=== PATIENT | male | born 1995 | race Caucasian/White ===

== ENCOUNTER 2020-03-26 09:42 | Day surgery (SDC) | payer OTHER ==
[2020-03-19 16:14] LABS: Basophils % 0.4 % (0-1.3); Hematocrit 40.8 % (39.6-49.0); Lymphocytes % 32.5 % (15.3-44.8)
[2020-03-19 16:15] LABS: Protime INR 1.08
[2020-03-19 16:32] LABS: BUN Blood Urea Nitrogen 17 mg/dL (7-18); Bicarbonate 30 mmol/L (21-32); Glucose Level 91 mg/dL (74-106); Potassium 4.1 mmol/L (3.5-5.1); Sodium Level 141 mmol/L (136-145)
[2020-03-26] MEDS ORDERED: Ringers Lactate 1,000 ML IV ONE (10:02)
[2020-03-26] MEDS ORDERED: BACITRACIN OINTMENT 15 GM TUBE TOP ONE (11:12)
[2020-03-26] MEDS: BUPIVACAINE 0.25% PF 30 ML VIAL ONE ×2 (11:49→12:13)
[2020-03-26] MEDS: CEFAZOLIN/SWI 1gm 1 GM/10 ML SYR ONE ×2 (11:49→12:00)
[2020-03-26] MEDS ORDERED: FENTANYL CITR 100 MCG/2 ML ONE (11:58)
[2020-03-26] MEDS ORDERED: propofoL 200 MG/20 ML VIAL IV ONE ×2 (11:58→13:15)
[2020-03-26] MEDS ORDERED: MIDAZOLAM HCL 2 MG/2 ML INJ ONE (11:58)
[2020-03-26] MEDS ORDERED: LIDOCAINE 1% MPF 5 ML VIAL ONE (11:58)
[2020-03-26] MEDS ORDERED: KETOROLAC 30 MG/ML INJ ONE (12:18)
[2020-03-26] MEDS ORDERED: ONDANSETRON 4 MG/2 ML VIAL ONE ×2 (12:28→14:24)
[2020-03-26] MEDS ORDERED: NORCO 5/325mg (4 TAB for ER Dispense) PO ONE (14:40)
[2020-03-26] MEDS ORDERED: HYDROCODONE/APAP 5/325 MG TAB ONE (14:51)
[2020-03-26 16:48] VITALS: TEMP 96.9; O2SAT 100
[2020-03-26 16:49] VITALS: BP 128/60
--- NOTE | 2020-03-26 18:19 | OP ---
Surgeon: JACQUELIN ROMEO Preoperative Diagnoses: 1.Left hydrocele. 2.History of VATER syndrome. Postoperative Diagnoses: 1.Moderate-sized left hydrocele. 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 3.Average tortuosity of the vas deferens entering the inferior epididymis. Procedure: 1.Left Jaboulay hydrocelectomy. 2.Left orchiopexy. 3.Left extratesticular lesion biopsy. Indication For Procedure: Mr. Montgomery presented to the [facility]rology [facility] with concerns of infertility an d a left-sided hydrocele that was bothersome to him. In the process of evaluating his infertility an d the hydrocele, ultrasound documented normal testicular anatomy without any signs of malignancy. As a result, he wished to undergo formal hydrocelectomy to restore somewhat of normal anatomy. Procedure In Detail: The patient was consented in the preoperative holding area before being transfe rred to the operative suite where general anesthesia was induced. He was given Ancef IV antimicrobia l prophylaxis, and pneumo boots were provided for DVT prophylaxis. He was placed supine on the opera tive table, padded and secured appropriately. His genitalia were prepped using Betadine and draped i n standard fashion. Identifying a Onofre's line incision in the anterior left hemiscrotum, 0.25% Mar shahnaz was instilled subcutaneously along that point of identification for an approximately 2-3 cm gorge gth. Using a 15 blade, the skin was incised and deepened through the subcutaneous tissues. Using el ectrocautery, this was deepened through the dartos layers down to the parietal layer of the tunica va ginalis. Careful dissection was then performed the tunica vaginalis anteriorly and medial ly as well as laterally, superiorly and inferiorly from the remainder of the scrotum. Because the hy drocele was significantly sized, I did incise the tunica vaginalis in the anterior-posterior directio n and partially decompressed. I was then able to deliver the hydrocele sac via the incision prior to completely decompressing the fluid from within. I then incised the tunica vaginalis in an anterior- posterior direction and assess the internal testicular anatomy and cord structures. While there was no significant varicocele noted, there was significant aberrancy of his anatomy. The tunica vaginali s viscerally attached low on the cord consistent with the potential for future intravaginal torsion e vent. Additionally, the vas deferens proceeded in a tortuous fashion into a portion of the thickened tunica vaginalis. As a result, efforts to excise much of the hydrocele sac were aborted due to the aberrant localization of the vas deferens and the efforts taken to avoid it. As a result, the tunica vaginalis that was remnant after excising a portion was then plicated behind the testis in the usual fashion. Additional tissue was separately excised in order to decrease the bulk of the thickened tu shawna vaginalis. Once this was done, the testis was then surveyed for appropriate orthotopic position ing relative to the cord structures and the vasculature. Because of the low insertion/attachment of the visceral layer of the tunica vaginalis and the risk of torsion as described earlier, I performed an orchiopexy using 4-0 Prolene to pex the testicle in the lateral as well as inferior component of t he scrotum. Once this was done, I then copiously irrigated all of the intratesticular structures and then reapproximated the cremaster and dartos layers of the scrotum taking care to excise any excess tissue from the multiple layers of scrotal tissue that he possessed. Once this was done, I then clos ed the skin using 3-0 chromic in a running fashion dipped in bacitracin. In the end, the cosmetic re sult was excellent. Please note that when surveying the testis above initially after opening the par ietal layer of tunica vaginalis, there were several areas, about 4 or 5, of granulomatous appearing l esions along the inferior portion of the tunica albuginea of the left testis. These lesions were bio psied and then fulgurated to destroy them. The specimen was sent for pathologic analysis. Once the procedure was complete, the patient was cleansed of the Betadine, and fluff gauze along with a scrota l support was applied for elevation and pressure. The patient was then awakened from general anesthe jose, transferred to a stretcher, and then transferred to the recovery room in good condition. Complications: None. Discharge Disposition: He will follow up in the Urology Clinic in about 2 weeks to discuss the resul ts of the pathology of the biopsy of the lesions extratesticularly as well as that of the hydrocele, which is expected to be benign. We will also reassess his cosmetic and functional outcome from the p rocedure. KIERAN/PABLO Voice ID: [id number] Report ID: [id number]
== END 2020-03-26 15:20 | disposition home or self-care (01) ==
LOC: OR 09:42
PROVIDERS: ATTEND Urology
PROC: 0VBB0ZX Excision of Left Testis, Open Approach, Diagnostic (ICD-10-PCS; 2020-03-26)
PROC: 0VB70ZZ Excision of Left Tunica Vaginalis, Open Approach (ICD-10-PCS; principal; 2020-03-26 11:15)
PROC: 0VQB0ZZ Repair Left Testis, Open Approach (ICD-10-PCS; 2020-03-26 11:15)
DX: N43.3 Hydrocele, unspecified (principal); N42.83 Cyst of prostate; Q87.2 Congenital malformation syndromes predominantly involving limbs
CPT/HCPCS: 55040; 54640; 54505; 85025; 80048; 36415; 85610; 88302; 88305; J2704 ×2; J2250; J3010; J0690; J7120; J2405 ×2

== ENCOUNTER 2020-10-31 11:22 | Emergency (ER) | payer OTHER ==
[2020-10-31 12:21] LABS: Absolute Lymphocytes (CBC) 0.8 K/uL (0.7-4.9); Basophils % 0.4 % (0-1.3); Hematocrit 41.5 % (39.6-49.0); Lymphocytes % 15.5 % (15.3-44.8); MPV 8.7 fL (7.6-11.3); RBC Red Blood Cell Count 4.93 M/uL (4.33-5.43)
[2020-10-31] MEDS ORDERED: ONDANSETRON 4 MG/2 ML VIAL ONE (12:26)
[2020-10-31] MEDS ORDERED: Ringers Lactate 2,000 ML IV ONE (12:26)
[2020-10-31] MEDS ORDERED: PROMETHAZINE INJ 25 MG/ML AMP ONE (12:31)
[2020-10-31 12:53] LABS: ALT/SGPT 44 U/L (12-78); AST/SGOT 36 U/L (15-37); Albumin 3.8 g/dL (3.4-5.0); Alkaline Phosphatase 78 U/L (45-117); BUN Blood Urea Nitrogen 17 mg/dL (7-18); Bicarbonate 28 mmol/L (21-32); Bilirubin Direct < 0.1 mg/dL (0-0.2); Bilirubin Total 0.3 mg/dL (0.2-1.0); Glucose Level 118 mg/dL (74-106); Lipase 87 U/L (73-393); Sodium Level 137 mmol/L (136-145)
--- NOTE | 2020-10-31 13:25 | RAD REPORT ---
EXAM DESCRIPTION: CTAbdomen Pelvis W Contrast - 10/31/2020 1:14 pm CLINICAL HISTORY: Abdominal pain. ABD PAIN COMPARISON: Abdomen Pelvis W Contrast dated 11/02/2019 TECHNIQUE: Biphasic CT imaging of the abdomen and pelvis was performed with 100 ml non-ionic IV cont rast. All CT scans are performed using dose optimization technique as appropriate and may include automated exposure control or mA/KV adjustment according to patient size. FINDINGS: Mild opacities are present in the lung bases which may represent infection/pneumonia. The liver demonstrates diffuse fatty infiltration. The spleen, pancreas, adrenal glands and kidneys a re within normal limits. No bowel obstruction, free air, free fluid or abscess. Probable appendectomy. No evidence of signif icant lymphadenopathy. No suspicious bony findings. IMPRESSION: No acute intra-abdominal or pelvic finding. Opacities in both lung bases are seen suspicious for pulmonary infection. Mild fatty liver.
--- NOTE | 2020-10-31 14:08 | EDPHYS ---
Physician Documentation [facility] Name: Joni Montgomery Age: 24 yrs Sex: Male : 1995 Arrival Date: 10/31/2020 Time: 11:24 Bed 17 Private MD: ED Physician Carroll Mcadams HPI: 10/31 12:49 This 24 yrs old Male presents to ER via Ambulatory with complaints of jr8 Nausea/Vomiting. 12:49 The patient presents to the emergency department with nausea, vomiting, diarrhea. jr8 Onset: The symptoms/episode began/occurred suddenly, 4 day(s) ago. Possible causes: unknown. The symptoms are aggravated by food . Associated signs and symptoms: Pertinent positives: dizziness. Severity of symptoms: At their worst the symptoms were moderate in the emergency department the symptoms are unchanged. The patient has not experienced similar symptoms in the past. The patient has not recently seen a physician. Patient stated that on October 27 while doing fireworks started to feel hot and then became dizzy and started to vomit. Stated that he has been vomiting ever sense and not been able to keep food or fluid down. Stated that the dizziness has improved but has some pain to abdomen . Historical: - Allergies: 11:43 Latex, Natural Rubber; sv - PMHx: 11:43 None; sv - PSHx: 11:43 Appendectomy; sv - Immunization history:: Client reports having NOT received the Covid vaccine. - Social history:: Smoking status: Patient denies any tobacco usage or history of. ROS: 12:49 Eyes: Negative for injury, pain, redness, and discharge, ENT: Negative for injury, jr8 pain, and discharge, Neck: Negative for injury, pain, and swelling, Cardiovascular: Negative for chest pain, palpitations, and edema, Respiratory: Negative for shortness of breath, cough, wheezing, and pleuritic chest pain, Back: Negative for injury and pain, MS/Extremity: Negative for injury and deformity, Skin: Negative for injury, rash, and discoloration. 12:49 Constitutional: Positive for poor PO intake. 12:49 Abdomen/GI: Positive for abdominal pain, nausea, vomiting, and diarrhea, abdominal cramps. 12:49 Neuro: Positive for dizziness. Exam: 12:49 ENT: Nares patent. No nasal discharge, no septal abnormalities noted. Tympanic jr8 membranes are normal and external auditory canals are clear. Oropharynx with no redness, swelling, or masses, exudates, or evidence of obstruction, uvula midline. Mucous membranes moist. Neck: Trachea midline, no thyromegaly or masses palpated, and no cervical lymphadenopathy. Supple, full range of motion without nuchal rigidity, or vertebral point tenderness. No Meningismus. 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 Lids and lashes normal. Conjunctiva and sclera are non-icteric and not injected. Cornea within normal limits. Periorbital areas with no swelling, redness, or edema. Respiratory: Lungs have equal breath sounds bilaterally, clear to auscultation and percussion. No rales, rhonchi or wheezes noted. No increased work of breathing, no retractions or nasal flaring. Back: No spinal tenderness. No costovertebral tenderness. Full range of motion. Skin: Warm, dry with normal turgor. Normal color with no rashes, no lesions, and no evidence of cellulitis. MS/ Extremity: Pulses equal, no cyanosis. Neurovascular intact. Full, normal range of motion. Neuro: Awake and alert, GCS 15, oriented to person, place, time, and situation. Cranial nerves II-XII grossly intact. Motor strength 5/5 in all extremities. Sensory grossly intact. 12:49 Cardiovascular: Rate: tachycardic, Rhythm: regular, Pulses: Pulses are 2+ in right radial artery and left radial artery. Heart sounds: normal, normal S1and S2, no S3 or S4, no murmur, no rub, no gallop, Edema: is not appreciated, JVD: is not appreciated. 12:49 Abdomen/GI: Inspection: abdomen appears normal, Bowel sounds: active, all quadrants, Palpation: soft, in all quadrants, moderate abdominal tenderness, in the right mid abdomen, mass, is not appreciated, rebound tenderness, is not appreciated, voluntary guarding, is not appreciated, involuntary guarding, is not appreciated, no appreciated organomegaly, Indicators: McBurney's point is not tender, Griffin's sign is negative, Rovsing's sign is negative, Liver: tenderness, is not appreciated. Vital Signs: 11:42 BP 106 / 70; Pulse 124; Resp 18; Temp 98.3(T); Pulse Ox 98% ; Weight 104.33 kg; Height sv 5 ft. 7 in. (170.18 cm); Pain 0/10; 12:25 BP 107 / 60; Pulse 109; Resp 20 S; Pulse Ox 98% on R/A; jd3 13:25 BP 113 / 75; Pulse 103; Resp 21 S; Pulse Ox 97% on R/A; jd3 14:33 BP 106 / 70; Pulse 100; Resp 16 S; Pulse Ox 97% on R/A; jd3 11:42 Body Mass Index 36.02 (104.33 kg, 170.18 cm) sv MDM: 11:39 Patient medically screened. jr8 13:37 Data reviewed: vital signs, nurses notes, lab test result(s), radiologic studies, CT jr8 scan. Data interpreted: Pulse oximetry: on room air is 97 %. Interpretation: normal. Counseling: I had a detailed discussion with the patient and/or guardian regarding: the historical points, exam findings, and any diagnostic results supporting the discharge/admit diagnosis, lab results, radiology results, the need for outpatient follow up, a family practitioner, to return to the emergency department if symptoms worsen or persist or if there are any questions or concerns that arise at home. 10/31 12:01 Order name: Basic Metabolic Panel; Complete Time: 12:58 10/31 12:01 Order name: CBC with Diff; Complete Time: 12:43 10/31 12:01 Order name: Hepatic Function; Complete Time: 12:58 10/31 12:01 Order name: Lipase; Complete Time: 12:58 10/31 13:34 Order name: SARS-COV-2 RT PCR; Complete Time: 13:35 EDMS 10/31 12:01 Order name: IV Saline Lock; Complete Time: 12:17 10/31 12:01 Order name: Labs collected and sent; Complete Time: 12:17 10/31 12:44 Order name: CT Abd/Pelvis - IV Contrast Only; Complete Time: 13:27 Administered Medications: 12:17 Drug: Ringers - Lactated Ringers Solution 1000 ml Route: IV; Rate: bolus; Site: right jd3 antecubital; 13:15 Follow up: Response: No adverse reaction; IV Status: Completed infusion; IV Intake: jd3 1000ml 12:17 Drug: Ringers - Lactated Ringers Solution 1000 ml Route: IV; Rate: bolus; Site: right jd3 antecubital; 13:15 Follow up: Response: No adverse reaction; IV Status: Completed infusion; IV Intake: jd3 1000ml 12:17 Not Given (Patient Refused): Zofran (Ondansetron) 4 mg IVP once; over 2 minutes jd3 12:17 Drug: Phenergan (promethazine) 12.5 mg Route: IVP; Site: right antecubital; jd3 13:15 Follow up: Response: No adverse reaction jd3 Disposition: 15:34 Co-signature as Attending Physician, Carroll Mcadams MD. rn Disposition Summary: 10/31/20 14:07 Discharge Ordered Location: Home jr8 Problem: new jr8 Symptoms: have improved jr8 Condition: Stable jr8 Diagnosis - Pneumonia due to SARS-associated coronavirus jr8 - Vomiting jr8 - Dehydration jr8 Followup: jr8 - With: Private Physician - When: 5 - 6 days - Reason: Recheck today's complaints, Continuance of care, Re-evaluation by your physician Discharge Instructions: - Discharge Summary Sheet jr8 - Dehydration, Adult jr8 - COVID-19 jr8 Forms: - Medication Reconciliation Form jr8 - Thank You Letter jr8 - Antibiotic Education jr8 - Prescription Opioid Use jr8 Prescriptions: - promethazine 25 mg Oral Tablet - take 1 tablet by ORAL route every 6 hours As needed; 20 tablet; Refills: 0, jr8 Product Selection Permitted Signatures: Dispatcher [employer] Kaylynn Chavarria RN RN sv Nieto, Roman, MD MD rn Roszak, Josh, PA PA jr8 Trevor Vera RN RN jd3 Corrections: (The following items were deleted from the chart) 12:32 12:01 CORONAVIRUS+MR.LAB.BRZ ordered. EDMS EDMS 13:50 13:28 Chest Single View+RAD.RAD.BRZ ordered. EDMS EDMS
--- NOTE | 2020-10-31 14:08 | ER ---
Nurse's Notes [facility] Name: Joni Montgomery Age: 24 yrs Sex: Male : 1995 Arrival Date: 10/31/2020 Time: 11:24 Bed 17 Private MD: Diagnosis: Pneumonia due to SARS-associated coronavirus;Vomiting;Dehydration Presentation: 10/31 11:42 Chief complaint: Patient states: n/v, sweating in am, body aches x 4 days. Coronavirus sv screen: Client denies travel out of the [place] in the last 14 days. Client presents with at least one sign or symptom that may indicate coronavirus-19. Standard/surgical mask placed on the client. Provider contacted for isolation considerations. Ebola Screen: No symptoms or risks identified at this time. Initial Sepsis Screen: Does the patient meet any 2 criteria? HR > 90 bpm. No. Patient's initial sepsis screen is negative. Does the patient have a suspected source of infection? No. Patient's initial sepsis screen is negative. Risk Assessment: Do you want to hurt yourself or someone else? Patient reports no desire to harm self or others. Onset of symptoms was October 27, 2020. 11:42 Method Of Arrival: Ambulatory sv 11:42 Acuity: ALEXUS 2 sv Triage Assessment: 11:44 General: Appears in no apparent distress. uncomfortable, Behavior is calm, cooperative, sv appropriate for age. Neuro: Level of Consciousness is awake, alert, obeys commands, Oriented to person, place, time, situation, Gait is steady. Respiratory: Respiratory effort is even, unlabored. Historical: - Allergies: 11:43 Latex, Natural Rubber; sv - PMHx: 11:43 None; sv - PSHx: 11:43 Appendectomy; sv - Immunization history:: Client reports having NOT received the Covid vaccine. - Social history:: Smoking status: Patient denies any tobacco usage or history of. Screenin:24 Abuse screen: Denies threats or abuse. Nutritional screening: No deficits noted. jd3 Tuberculosis screening: No symptoms or risk factors identified. Fall Risk Ambulatory Aid- None/Bed Rest/Nurse Assist (0 pts). Gait- Normal/Bed Rest/Wheelchair (0 pts) Mental Status- Oriented to own ability (0 pts). Total Guzman Fall Scale indicates No Risk (0-24 pts). Assessment: 12:20 General: Appears in no apparent distress. uncomfortable, Behavior is calm, cooperative, jd3 appropriate for age. Pain: Complains of pain in abdomen Quality of pain is described as aching. Neuro: Level of Consciousness is awake, alert, obeys commands, Oriented to person, place, time, situation. Cardiovascular: Denies chest pain, Capillary refill < 3 seconds Patient's skin is warm and dry. Respiratory: Reports cough that is persistent Airway is patent Respiratory effort is even, unlabored, Respiratory pattern is regular, symmetrical, Denies shortness of breath. GI: Abdomen is flat, non-distended, Abd is soft and non tender X 4 quads. Reports diarrhea, nausea, vomiting. : No signs and/or symptoms were reported regarding the genitourinary system. EENT: No signs and/or symptoms were reported regarding the EENT system. Derm: Skin is intact, Skin is dry, Skin is normal, Skin temperature is warm. Musculoskeletal: No signs and/or symptoms reported regarding the musculoskeletal system. 13:25 Reassessment: Patient appears in no apparent distress at this time. No changes from jd3 previously documented assessment. Patient and/or family updated on plan of care and expected duration. Pain level reassessed. Patient is alert, oriented x 3, equal unlabored respirations, skin warm/dry/pink. 14:33 Reassessment: Patient appears in no apparent distress at this time. No changes from jd3 previously documented assessment. Patient and/or family updated on plan of care and expected duration. Pain level reassessed. Patient is alert, oriented x 3, equal unlabored respirations, skin warm/dry/pink. Vital Signs: 11:42 BP 106 / 70; Pulse 124; Resp 18; Temp 98.3(T); Pulse Ox 98% ; Weight 104.33 kg; Height sv 5 ft. 7 in. (170.18 cm); Pain 0/10; 12:25 BP 107 / 60; Pulse 109; Resp 20 S; Pulse Ox 98% on R/A; jd3 13:25 BP 113 / 75; Pulse 103; Resp 21 S; Pulse Ox 97% on R/A; jd3 14:33 BP 106 / 70; Pulse 100; Resp 16 S; Pulse Ox 97% on R/A; jd3 11:42 Body Mass Index 36.02 (104.33 kg, 170.18 cm) sv ED Course: 11:24 Patient arrived in ED. wm 11:39 Kade Forrest PA is PHCP. jr8 11:39 Carroll Mcadams MD is Attending Physician. jr8 11:43 Triage completed. sv 11:44 Arm band placed on. sv 11:53 Trevor Vera, ANASTASIYA is Primary Nurse. jd3 12:25 Patient has correct armband on for positive identification. Bed in low position. Call jd3 light in reach. Side rails up X 1. Adult w/ patient. Pulse ox on. NIBP on. 13:00 Inserted saline lock: 20 gauge in right antecubital area, using aseptic technique. jd3 Blood collected. 13:13 CT Abd/Pelvis - IV Contrast Only In Process Unspecified. EDMS 14:49 No provider procedures requiring assistance completed. IV discontinued, intact, jd3 bleeding controlled, No redness/swelling at site. Pressure dressing applied. Administered Medications: 12:17 Drug: Ringers - Lactated Ringers Solution 1000 ml Route: IV; Rate: bolus; Site: right jd3 antecubital; 13:15 Follow up: Response: No adverse reaction; IV Status: Completed infusion; IV Intake: jd3 1000ml 12:17 Drug: Ringers - Lactated Ringers Solution 1000 ml Route: IV; Rate: bolus; Site: right jd3 antecubital; 13:15 Follow up: Response: No adverse reaction; IV Status: Completed infusion; IV Intake: jd3 1000ml 12:17 Not Given (Patient Refused): Zofran (Ondansetron) 4 mg IVP once; over 2 minutes jd3 12:17 Drug: Phenergan (promethazine) 12.5 mg Route: IVP; Site: right antecubital; jd3 13:15 Follow up: Response: No adverse reaction jd3 Intake: 13:15 IV: 1000ml; Total: 1000ml. jd3 13:15 IV: 1000ml; Total: 2000ml. jd3 Outcome: 14:07 Discharge ordered by . jr8 14:50 Discharged to home ambulatory, with family. jd3 14:50 Condition: stable 14:50 Discharge instructions given to patient, family, Instructed on discharge instructions, follow up and referral plans. medication usage, Demonstrated understanding of instructions, follow-up care, medications, Prescriptions given X 1. 14:50 Patient left the ED. [email or web address] Signatures: Dispatcher [employer] Kaylynn Chavarria RN RN sv Roszak, Josh, PA PA jr8 Trevor Vera RN RN jd3 Marsh, Wendy
[2020-10-31 14:57] VITALS: TEMP 98.3
[2020-10-31 15:00] VITALS: O2SAT 97
[2020-10-31 15:02] VITALS: BP 106/70
== END 2020-10-31 14:50 | disposition home or self-care (01) ==
LOC: ER 11:22
DX: U07.1 COVID-19 (principal); J12.82 Pneumonia due to coronavirus disease 2019; E86.0 Dehydration; Z91.040 Latex allergy status; Z91.048 Other nonmedicinal substance allergy status
CPT/HCPCS: 96365; 85025; 80048; 36415; 80076; 83690; 74177; 96375; 99284; U0003; Q9967; J2550; J7120; J2405